=== PATIENT | female | born 1940 | race Caucasian/White ===

== ENCOUNTER → 2019-05-12 | Outpatient (CLI) | payer OTHER ==
[~2019-05-12] VITALS: Ht 157.5 cm; Wt 51.7 kg
[~2019-05-12] MED LIST: ASA81BEC PO; LINZESS145 MCG PO; LIVALO2 MG PO; MINIVELLE1 EAC1 TOP; OSPHENA60 MG PO; RESTASIS1 EACH OPHTHALMIC; SYNTHROID75 MCG PO; XALATAN2.5 ML OPHTHALMIC
[2019-05-12 11:21] VITALS: BP 177/83
[2019-05-12 11:39] LABS: HEMATOCRIT 38.5 % (37.0-47.0); HEMOGLOBIN 12.8 gm/dL (12.0-15.0); MCH 30.1 pg (26.0-34.0); MCHC 33.2 g/dL (28.0-37.0); MCV 90.7 fL (80.0-100.0); RBC 4.24 mil/uL (4.20-5.00); WBC 5.9 thou/uL (4.0-11.0)
[2019-05-12 11:47] LABS: CALCIUM 9.8 mg/dL (8.5-10.1); CREATININE 0.8 mg/dL (0.6-1.0); POTASSIUM 3.7 mmol/L (3.5-5.1)
[2019-05-12 11:53] LABS: ALBUMIN 3.8 g/dL (3.4-5.0); TOTAL BILIRUBIN 0.3 mg/dL (<0.1-1.0); TOTAL PROTEIN 7.1 g/dL (6.4-8.2)
--- NOTE | 2019-05-12 13:14 | EKG ---
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
--- NOTE | 2019-05-14 18:02 | CATHLAB ---
[facility] [place] [address] INVASIVE PROCEDURE REPORT Name: ROLO GRAVES Room #: REG LAURA Brown#: [id number] Admission: 05/12/19 Attend Phys: Geovany Alexis, Discharge: Date of : 40 Report #: [id number] THIS REPORT FOR: //name// APPROVED REPORT Study performed: 05/12/2019 11:06:09 Patient Details Patient Status: Out-Patient Room #: The patient is a 79 year-old female Event Personnel Geovany Alexis Veterinarian Epidemiologist, Ada Goetz RTR, PARTY SUPPLY SPECIALIST Monitor, Dee Torrez RN RN, Rg Real RTR Scrub Procedures Performed Left Heart Cath w/or w/o Coronaries 5579967 [facility] Aortogram Abdominal Peripheral Angio 122377 Renal Bilateral Peripheral Angiography 2487899 CVRENALBIL Indication Chest pain Procedure Narrative The Right Groin^ was infiltrated with 1% Lidocaine subcutaneous anesthesia. A PINNACLE 6FR Sheath #[id number] sheath was inserted into the RFA^. Coronary angiography was performed using coronary diagnostic catheters. The right coronary system was accessed and visualized with a JR4 catheter. The left coronary system was accessed and visualized with a JL4 catheter. The left ventricle was accessed and visualized with a PIGTAIL catheter. Left ventriculogram was performed in 30 degree projection. An aortogram of the abdominal aorta was performed. Closure device was deployed with a 6 Fr MYNXGRIP 6/7F #[id number]. There was no hematoma. Intraoperative Conscious Sedation Sedation start time: 12.14 Case end Time: 12.50 Fentanyl 100 mcg Versed 2 mg Fluoro Time: 1.46 minutes Dose: DAP 1041.00 cGycm2 116 mGy Contrast Type and Amount: Omnipaque 75 ml [facility] [place] [address] INVASIVE PROCEDURE REPORT Name: ROLO GRAVES Room #: [facility] Kevin#: [id number] Admission: 05/12/19 Attend Phys: Geovany Alexis, Discharge: Date of : 40 Report #: [id number] Hemodynamics The aortic pressure is 189/74 mmHg with a mean of 123 mmHg. The left ventricular pressure is 192/7 mmHg with a mean of mmHg. The left ventricular end diastolic pressure is 21 mmHg. Conclusion #1 left main moderate size giving rise to LAD and circumflex free of disease. #2 LAD extends to the apex. There is a moderate lesion at the bifurcation in the 60% range just distal to the diagonal takeoff. The diagonal branch is widely patent. #3 circumflex OM nondominant with mild disease #4 dominant right coronary with only mild irregularities. Diffuse distal disease #5 normal left ventricular size and systolic function EF 55% #6 abdominal aorta is intact without aneurysm bilateral renal arteries were widely patent. Lesions and plan: Continue aggressive risk factor modification. We will follow that mid LAD lesion although does not appear to be occlusive or require intervention. Aggressive blood pressure and lipid control. <ELECTRONICALLY SIGNED> By: Geovany Alexis MD, FACC 05/14/191800 00 00 Geovany Alexis MD, FACC /INF
== END | disposition home or self-care (01) ==
LOC: CATH 08:03 → SJCVCIMAG 08:03
PROVIDERS: Internal Medicine Cardiovascular Disease
DX: R07.9 Chest pain, unspecified (principal); I25.10 Atherosclerotic heart disease of native coronary artery without angina pectoris; R94.39 Abnormal result of other cardiovascular function study; I65.23 Occlusion and stenosis of bilateral carotid arteries; I10 Essential (primary) hypertension; E78.00 Pure hypercholesterolemia, unspecified; I73.9 Peripheral vascular disease, unspecified; H40.9 Unspecified glaucoma; E78.5 Hyperlipidemia, unspecified; K21.9 Gastro-esophageal reflux disease without esophagitis; E03.9 Hypothyroidism, unspecified; Z98.890 Other specified postprocedural states; Z79.899 Other long term (current) drug therapy; Z79.82 Long term (current) use of aspirin; Z87.891 Personal history of nicotine dependence

== ENCOUNTER → 2019-06-02 | Outpatient (CLI) | payer OTHER | LOC: SJCVC 13:05 | DX: I25.10 Atherosclerotic heart disease of native coronary artery without angina pectoris (principal); I10 Essential (primary) hypertension; I12.9 Hypertensive chronic kidney disease with stage 1 through stage 4 chronic kidney disease, or unspecified chronic kidney disease; N18.2 Chronic kidney disease, stage 2 (mild); K21.9 Gastro-esophageal reflux disease without esophagitis; I65.23 Occlusion and stenosis of bilateral carotid arteries; E03.9 Hypothyroidism, unspecified; Z90.710 Acquired absence of both cervix and uterus; Z79.82 Long term (current) use of aspirin; Z79.899 Other long term (current) drug therapy ==

== ENCOUNTER → 2019-06-30 | Outpatient (CLI) | payer OTHER | LOC: SJCVC 13:13 | DX: I10 Essential (primary) hypertension (principal); I25.10 Atherosclerotic heart disease of native coronary artery without angina pectoris; I65.23 Occlusion and stenosis of bilateral carotid arteries; E78.00 Pure hypercholesterolemia, unspecified; K21.9 Gastro-esophageal reflux disease without esophagitis; Z90.710 Acquired absence of both cervix and uterus; Z79.899 Other long term (current) drug therapy ==

== ENCOUNTER → 2020-01-04 | Outpatient (CLI) | payer OTHER | LOC: SJCVCIMAG 13:21 → SJCVC 13:21 | PROVIDERS: ATTEND Internal Medicine Cardiovascular Disease | DX: I10 Essential (primary) hypertension (principal); R53.83 Other fatigue; E78.00 Pure hypercholesterolemia, unspecified; Z79.899 Other long term (current) drug therapy; Z87.891 Personal history of nicotine dependence ==

== ENCOUNTER → 2020-01-12 | Outpatient (CLI) | payer OTHER | LOC: SJCVCIMAG 07:21 | PROVIDERS: ATTEND Internal Medicine Cardiovascular Disease | DX: I07.1 Rheumatic tricuspid insufficiency (principal); I27.20 Pulmonary hypertension, unspecified; I10 Essential (primary) hypertension; E78.00 Pure hypercholesterolemia, unspecified; Z79.899 Other long term (current) drug therapy; Z87.891 Personal history of nicotine dependence ==

== ENCOUNTER → 2020-08-26 | Outpatient (CLI) | payer OTHER | LOC: SJCVCIMAG 13:02 → SJCVC 13:02 | PROVIDERS: ATTEND Internal Medicine Cardiovascular Disease | DX: I25.10 Atherosclerotic heart disease of native coronary artery without angina pectoris (principal); M54.9 Dorsalgia, unspecified; M25.519 Pain in unspecified shoulder; R06.00 Dyspnea, unspecified; I10 Essential (primary) hypertension; E78.00 Pure hypercholesterolemia, unspecified; M89.8X1 Other specified disorders of bone, shoulder; K21.9 Gastro-esophageal reflux disease without esophagitis; E78.5 Hyperlipidemia, unspecified; Z90.49 Acquired absence of other specified parts of digestive tract; Z88.8 Allergy status to other drugs, medicaments and biological substances; Z79.899 Other long term (current) drug therapy; Z87.891 Personal history of nicotine dependence ==